=== PATIENT | female | born 1985 | race Caucasian/White ===

== ENCOUNTER 2019-04-24 16:14 | Inpatient (IN) | payer OTHER ==
[~2019-04-24] VITALS: Ht 154.9 cm; Wt 76.2 kg
[2019-04-24 16:59] LABS: Urine Bacteria FEW /hpf (None Seen); Urine Blood Negative /uL (Negative); Urine Mucus FEW (None Seen); Urine Specific Gravity 1.014 (1.001-1.035); Urine WBC 13 /hpf (0 - 5)
[2019-04-24] MEDS ORDERED: SODIUM CHLORIDE 0.9% 1,000 ML IVB ONE (18:24)
[2019-04-24 18:54] LABS: Basophils # (auto) 0.1 uL; Basophils % (auto) 0.3 % (0.0-2.0); Eosinophils # (auto) 0.1 uL; Eosinophils % (auto) 0.4 % (0.0-7.0); Hematocrit 45.9 % (36.0-46.0); Hemoglobin 15.6 g/dL (12.2-16.2); Lymphocytes # (auto) 2.3 uL; Lymphocytes % (auto) 11.9 % (10.0-50.0); Mean Corpuscular Hemoglobin 30.4 pg (28.0-32.0); Mean Corpuscular Hgb Conc. 33.9 g/dL (32.0-36.0); Mean Corpuscular Volume 89.8 fL (80.0-100.0); Monocytes % (auto) 5.1 % (0.0-12.0); Neutrophils % (auto) 82.3 % (37.0-80.0); Platelet Count (auto) 263 10^3/uL (140-450); Red Blood Cells 5.12 10^6/uL (4.0-5.20); Red Cell Distribution Width 12.6 % (11.8-14.3); White Blood Cell 19.5 10^3/uL (4.4-10.8)
[2019-04-24 19:11] LABS: BUN/Creatinine Ratio 14.1; Calcium 9.1 mg/dL (8.5-10.1); Potassium 3.7 mmol/L (3.5-5.1)
[2019-04-24 19:14] LABS: Bilirubin, Total 0.5 mg/dL (0.2-1.0); Total Protein 8.1 g/dL (6.4-8.2)
[2019-04-24] MEDS ORDERED: cefTRIAXone 1GM/50ML D5W 50 ML IV ONE (19:30)
[2019-04-24] MEDS ORDERED: MORPHINE SULFATE 4 MG/ML SYR/VIAL IV ONE (19:30)
[2019-04-24] MEDS: ONDANSETRON HCL 4 MG/2 ML VIAL IV ONE (19:30)
[2019-04-24 19:56] LABS: INR 1.05 (0.9-1.15); Partial Thromboplastin Time 21.9 sec (23.64-32.05)
[2019-04-24] MEDS ORDERED: ONDANSETRON HCL 4 MG/2 ML VIAL IV PRN (20:00)
[2019-04-24] MEDS ORDERED: HYDROmorphone HCL 2 MG/ML VL IV PRN ×2 (20:00→23:30)
[2019-04-24] MEDS ORDERED: D5W/SOD CHL 0.45%/KCL 20MEQ 1,000 ML IV ONE (20:00)
[2019-04-24] MEDS ORDERED: HYDROcodone-ACET 5/325MG TAB PO PRN (22:15)
[2019-04-24] MEDS ORDERED: ACETAMINOPHEN 325 MG TAB PO PRN (22:15)
[2019-04-24] MEDS ORDERED: PANTOPRAZOLE 40 MG/10 ML VIAL INJ IV ONE (23:00)
[2019-04-24] MEDS ORDERED: D5W/SOD CHL 0.45%/KCL 20MEQ 1,000 ML IV SCH (23:00)
[2019-04-24] MEDS: metroNIDAZOLE 500MG/100ML 100 ML IV SCH (23:22)
[2019-04-24] MEDS: MORPHINE SULFATE 4 MG/ML SYR/VIAL IV PRN (23:26)
[2019-04-24] MEDS: ONDANSETRON HCL 4 MG/2 ML VIAL IV PRN (23:27)
[2019-04-24 23:42] VITALS: BP 137/85
[2019-04-24 23:47] VITALS: BP 129/83
--- NOTE | 2019-04-24 23:47 | NUR ---
MS admit from ER HANNAH PATIÑO admitted to MS room 250B. Patient oriented to IBAN RODRIGUEZ, primary RN, unit, room, bed, and unit policies regarding patient care and visiting hours. Room air, pain level 7/10, and ambulates independently without assistive devices. Bed locked in lowest position, side rails up x2, and call light within reach. IV 22 g in right AC running D5W/0.45% NS/KCL 20 meq at 100 ml/hr inserted on 04/24/19. Patient weighed by bedscale and encouraged to call if they need something. All questions and concerns addressed, patient verbalized understanding. Patient is NPO for possible lap appe on 04/25/19.
[2019-04-25] MEDS ORDERED: ceFAZolin 1GM/50ML 50 ML IV SCH
[2019-04-25] MEDS: ceFAZolin 1GM/50ML 50 ML IV SCH ×5 (00:30→23:49)
[2019-04-25 05:00] VITALS: BP 122/94
[2019-04-25 05:16] LABS: Basophils # (auto) 0.1 uL; Basophils % (auto) 0.5 % (0.0-2.0); Eosinophils # (auto) 0.1 uL; Eosinophils % (auto) 1.1 % (0.0-7.0); Hematocrit 41.2 % (36.0-46.0); Hemoglobin 14.3 g/dL (12.2-16.2); Lymphocytes # (auto) 2.5 uL; Lymphocytes % (auto) 23.7 % (10.0-50.0); Mean Corpuscular Hemoglobin 31.4 pg (28.0-32.0); Mean Corpuscular Hgb Conc. 34.8 g/dL (32.0-36.0); Mean Corpuscular Volume 90.4 fL (80.0-100.0); Monocytes # (auto) 0.8 uL; Monocytes % (auto) 7.7 % (0.0-12.0); Neutrophils # (auto) 7.2 uL; Platelet Count (auto) 217 10^3/uL (140-450); Red Blood Cells 4.56 10^6/uL (4.0-5.20); Red Cell Distribution Width 13.2 % (11.8-14.3); White Blood Cell 10.7 10^3/uL (4.4-10.8)
[2019-04-25 05:40] LABS: BUN/Creatinine Ratio 9.5; Calcium 8.5 mg/dL (8.5-10.1); Potassium 3.5 mmol/L (3.5-5.1)
[2019-04-25] MEDS: MORPHINE SULFATE 4 MG/ML SYR/VIAL IV PRN ×2 (05:54→20:31)
[2019-04-25] MEDS: ONDANSETRON HCL 4 MG/2 ML VIAL IV PRN ×3 (05:54→17:01)
[2019-04-25] MEDS: metroNIDAZOLE 500MG/100ML 100 ML IV SCH ×3 (06:20→22:10)
[2019-04-25] MEDS ORDERED: GLYCOPYRROLATE 0.2 MG/ML 1ML VIAL IV ONE (07:25)
[2019-04-25] MEDS ORDERED: NEOSTIGMINE 1 MG/ML INJ (10mg/10ML VIAL) IV ONE (07:25)
[2019-04-25] MEDS: D5W/SOD CHL 0.45%/KCL 20MEQ 1,000 ML IV SCH ×4 (07:30→23:49)
[2019-04-25] MEDS ORDERED: MEPERIDINE HCL (50 MG/ML) 1 ML VIAL ONE (07:33)
[2019-04-25] MEDS ORDERED: fentaNYL CITRATE 100 MCG/2 ML VL ONE (07:33)
[2019-04-25] MEDS ORDERED: MIDAZOLAM HCL 1MG/1ML-2 ML VIAL ONE (07:33)
--- NOTE | 2019-04-25 07:33 | NUR ---
Opening Shift Note Pt went down in OR for laparoscopic appendectomy at 0705. Received report from night nurse
[2019-04-25] MEDS ORDERED: PROPOFOL 10 MG/ML 20 ML IV ONE (07:41)
[2019-04-25] MEDS ORDERED: DexAMETHasone SOD PHOS 10MG/1ML VIAL INJ ONE (07:41)
[2019-04-25] MEDS ORDERED: ROCURONIUM 10MG/ML 10ML VIAL IV ONE (07:42)
[2019-04-25] MEDS ORDERED: MIDAZOLAM HCL 1MG/1ML-2 ML VIAL IV PRN (08:15)
[2019-04-25] MEDS ORDERED: ONDANSETRON HCL 4 MG/2 ML VIAL IV PRN (08:15)
[2019-04-25] MEDS ORDERED: ePHEDrine SULFATE 50 MG/ML AMP IV PRN (08:15)
[2019-04-25] MEDS ORDERED: HYDROmorphone HCL 2 MG/ML VL IV PRN (08:15)
[2019-04-25] MEDS ORDERED: LABETALOL HCL 5 MG/ML 4ML SYRINGE IV PRN (08:15)
[2019-04-25] MEDS ORDERED: MORPHINE SULFATE 4 MG/ML SYR/VIAL IV PRN (08:15)
[2019-04-25] MEDS ORDERED: KETOROLAC TROMETH 30 MG/ML 1ML VIAL IV ONE (08:15)
[2019-04-25] MEDS: ONDANSETRON HCL 4 MG/2 ML VIAL IV ONE (08:40)
--- NOTE | 2019-04-25 09:00 | NUR ---
FOR 0900 VITALS PATIENT WAS IN A PROCEDURE. WILL MONITOR VITALS WHEN SHE RETURNS
[2019-04-25] MEDS ORDERED: PANTOPRAZOLE 40 MG/10 ML VIAL INJ IV SCH (10:00)
[2019-04-25 13:00] VITALS: BP 123/76
[2019-04-25 17:00] VITALS: BP 133/83
--- NOTE | 2019-04-25 19:40 | NUR ---
Opening Shift Note Assumed care of patient, awake and alert x4. Visitor noted at the bedside. Patient is complaining of pain 8/10 to mid abdomen, will medicate patient as ordered by MD. Patient denies shortness of breath or nausea at this time. Instructed on plan of care and to call for assistance, patient verbalized understanding. Bed is locked in lowest position, side rails x 2 are up, call light is within reach, and sitter is at the bedside for safety precautions.
[2019-04-25 23:02] VITALS: BP 121/83
[2019-04-26] MEDS: MORPHINE SULFATE 4 MG/ML SYR/VIAL IV PRN ×2 (03:02→08:16)
[2019-04-26] MEDS: metroNIDAZOLE 500MG/100ML 100 ML IV SCH ×2 (05:21→13:42)
[2019-04-26 05:26] VITALS: BP 116/76
[2019-04-26] MEDS: ceFAZolin 1GM/50ML 50 ML IV SCH ×2 (06:11→11:57)
[2019-04-26] MEDS: D5W/SOD CHL 0.45%/KCL 20MEQ 1,000 ML IV SCH (06:40)
[2019-04-26 07:16] LABS: Basophils # (auto) 0 uL; Basophils % (auto) 0.1 % (0.0-2.0); Eosinophils # (auto) 0 uL; Hematocrit 37.8 % (36.0-46.0); Hemoglobin 12.9 g/dL (12.2-16.2); Lymphocytes # (auto) 0.9 uL; Lymphocytes % (auto) 6.6 % (10.0-50.0); Mean Corpuscular Hemoglobin 30.8 pg (28.0-32.0); Mean Corpuscular Hgb Conc. 34.1 g/dL (32.0-36.0); Mean Corpuscular Volume 90.5 fL (80.0-100.0); Monocytes # (auto) 0.7 uL; Monocytes % (auto) 5.6 % (0.0-12.0); Neutrophils # (auto) 11.4 uL; Neutrophils % (auto) 87.7 % (37.0-80.0); Platelet Count (auto) 234 10^3/uL (140-450); Red Blood Cells 4.18 10^6/uL (4.0-5.20); Red Cell Distribution Width 12.9 % (11.8-14.3); White Blood Cell 13.1 10^3/uL (4.4-10.8)
[2019-04-26 07:21] LABS: Anion Gap 5 (5-15); BUN/Creatinine Ratio 9.9; Blood Urea Nitrogen 7 mg/dL (7-18); Calcium 8.4 mg/dL (8.5-10.1); Carbon Dioxide 24 mmol/L (21-32); Chloride 110 mmol/L (98-107); GFR African American 123 mL/min; GFR Non-African American 101 mL/min; Glucose 107 mg/dL (74-106); Potassium 4.1 mmol/L (3.5-5.1); Sodium 139 mmol/L (136-145)
--- NOTE | 2019-04-26 07:30 | NUR ---
REPORT RECEIVED FROM NIGHT RN. ASSUMED PT'S CARE. PT. NOTED TO BE AAOX4, PLEASANT AND COOPERATIVE. PT. C/O ABDOMINAL SURGICAL PAIN 01/13 AND WILL BE MEDICATED PER PRN ORDER. SHIFT ASSESSMENT DONE AND CHARTED. PLAN OF CARE, MEDS, TREATMENTS AND SAFETY DISCUSSED WITH PT. WILL CONTINUE TO MONITOR PT.
[2019-04-26 08:00] VITALS: BP 125/77
[2019-04-26 09:00] VITALS: BP 125/77
[2019-04-26] MEDS ORDERED: ACE325T PO (10:07)
[2019-04-26] MEDS ORDERED: METR500T PO (10:07)
[2019-04-26] MEDS ORDERED: IBUP800T24 PO (10:15)
--- NOTE | 2019-04-26 10:16 | NUR ---
DR. CARLIN WAS IN TO SEE PATIENT AND MD LEFT ORDERS FOR PATIENT'S DISCHARGE. MD TOLD PATIENT THAT SHE CAN GO HOME IF SHE TOLERATES HER DIET AND ASYMPTOMATIC AFTER 1500. WILL CONTINUE TO MONITOR PATIENT.
[2019-04-26 11:47] VITALS: BP 125/77
[2019-04-26 13:00] VITALS: BP 135/77
--- NOTE | 2019-04-26 13:03 | NUR ---
REPORT GIVEN TO DEWAYNE BAKER WHO IS ASSUMING PATIENT'S CARE. NO CHANGES NOTED IN PT'S CONDITION.
--- NOTE | 2019-04-26 13:05 | NUR ---
REPORT RECEIVED TO ASSUME CARE OF PATIENT UNTIL PATIENT IS DISCHARGED HOME
--- NOTE | 2019-04-26 14:06 | NUR ---
AMBU/PAIN PATIENT ASKING FOR PAIN MEDICATION-STATED INCISION IS BECOMING "A LITTLE PAINFUL" PAIN LEVEL 3/10. PATIENT MEDICATED WITH TYLENOL. PATIENT ASKING TO AMBULATE, PATIENT ASSISTED OUT OF BED, NO DISTRESS NOTED, GAIT STEADY AND STABLE. PATIENT ATE 75% OF LUNCH, NO NAUSEA, NO STOMACH PAIN OR IRRITATION, LUNCH TOLERATED WELL. PATIENT'S TRANSPORTATION AT BEDSIDE, PATIENT TO BE DISCHARGED AT 15:00 PER DOCTORS ORDERS.
--- NOTE | 2019-04-26 14:40 | NUR ---
IV removal IV DC'd with clean sterile technique, catheter fully intact. Pressure dressing applied to site. Patient tolerated well. NOTE:
== END 2019-04-26 15:04 | disposition home or self-care (01) | DRG 854 ==
LOC: ER 16:33 → EAST 16:34
PROVIDERS: ADMIT Nurse Practitioner; ATTEND Internal Medicine Nephrology
PROC: 0DTJ4ZZ Resection of Appendix, Percutaneous Endoscopic Approach (ICD-10-PCS; principal; 2019-04-25 07:33)
DX: A41.9 Sepsis, unspecified organism (principal); K35.80 Unspecified acute appendicitis; N39.0 Urinary tract infection, site not specified; D72.829 Elevated white blood cell count, unspecified; E66.9 Obesity, unspecified; Z68.31 Body mass index [BMI] 31.0-31.9, adult; Z91.040 Latex allergy status; Z80.9 Family history of malignant neoplasm, unspecified; Z80.3 Family history of malignant neoplasm of breast
CPT/HCPCS: 36415; 71045; 74176; 80048; 80053; 81001; 81025; 83690; 85025; 85610; 85730; 86850; 86900; 86901; 93005; 96361; 96365; C9113; G0378; J0690; J0696; J1100; J1885; J2250; J2405; J2704; J3490